=== PATIENT | female | born 1950 | race Hispanic/Latino ===

== ENCOUNTER 2019-03-20 05:39 | Day surgery (SDC) | payer OTHER ==
[~2019-03-20] VITALS: Ht 154.9 cm; Wt 78.0 kg
[~2019-03-20 05:39] MED LIST: AMLO5TAB9 PO; BIOT5000 PO; CALC600T12 PO; CARV12.511 PO; ERGO500014 PO; LOSA1TAB42 PO; MULT-1203 PO; OMEG-148 PO; PANT20TA12 PO; SIMV10TA6 PO; SODIUM CHLORIDE 0.9% 1000ML 1,000 ML IV ONE
[2019-03-20 06:49] VITALS: BP 138/60
[2019-03-20] MEDS ORDERED: PROPOFOL 10 MG/ML 20ML VIAL IV ONE (08:15)
[2019-03-20 08:41] VITALS: BP 103/60
[2019-03-20 08:46] VITALS: BP 105/41
[2019-03-20 08:52] VITALS: BP 118/48
[2019-03-20 09:00] VITALS: BP 109/76
[2019-03-20 09:08] VITALS: BP 120/64
--- NOTE | 2019-03-20 09:13 | NUR ---
PRESCRIPTION PRESCRIPTION GIVEN TO FOR HEMORRHOID CREAM PER DR. PERRY
== END 2019-03-20 09:15 | disposition home or self-care (01) ==
LOC: DAH 05:39 → ENDO 05:39
PROVIDERS: ATTEND Internal Medicine
DX: R19.4 Change in bowel habit (principal); K64.1 Second degree hemorrhoids; K57.30 Diverticulosis of large intestine without perforation or abscess without bleeding; K62.89 Other specified diseases of anus and rectum; I10 Essential (primary) hypertension; R12 Heartburn; E78.5 Hyperlipidemia, unspecified; Z90.49 Acquired absence of other specified parts of digestive tract; Z90.711 Acquired absence of uterus with remaining cervical stump; Z80.0 Family history of malignant neoplasm of digestive organs; Z88.5 Allergy status to narcotic agent; Z79.899 Other long term (current) drug therapy
CPT/HCPCS: 45378; A4215 ×2; A4221; A4222; A4223; A4606; A4615; A4663; J2704; J7030